=== PATIENT | female | born 1945 | race Caucasian/White ===

== ENCOUNTER 2016-04-23 08:32 | Inpatient (IN) | payer OTHER ==
[~2016-04-23] VITALS: Ht 162.5 cm; Wt 80.6 kg
[~2016-04-23 08:32] MED LIST: ACTONEL150 MG PO; ARICEPT10 MG PO; ASPI-COR81 M1 PO; ASPIR LOW81 MG PO; B COMPLEX #11 TA1 PO; BACTRIM DS 8001 TA1 PO; CEPHULAC10 GM/15 M PO; CIPROFLOXACIN500 MG PO; COZAAR25 MG PO; CRESTOR10 MG PO; DYAZIDE 25 MG-31 CAP PO; ENALAPRIL MALEA20 MG PO; HYDROCHLOROTHIA25 MG PO; KLOR-CON 1010 MEQ PO; LABETALOL200 MG PO; METFORMIN HCL500 MG PO; METOPROLOL100 MG PO; NORVASC5 MG PO; OMEPRAZOLE20 MG PO; ONE DAILY1 TA1 PO; OXYBUTYNIN5 MG PO; QUALITY CHOICE600 M1 PO; SERTRALINE HCL100 MG PO; STOOL SOFTENER100 M3 PO; SYNTHROID,LEV100 MCG PO; SYNTHROID,LEV200 MCG PO; Synthroid,Lev100 MCG PO; Synthroid,Lev200 MCG PO; TRIAMTERENE/HCT1 CAP PO; ULTRAM50 MG PO; VASOTEC10 MG PO; VERAPAMIL HCL180 M1 PO; VERAPAMIL120 MG PO; VITAMIN D PO; VITAMIN D-32000 UNIT PO; VITAMIN D400 I1 PO; VOLTAREN50 M1 PO; VOLTAREN50 MG PO; ZOLOFT100 MG; [UNRECOGNIZED DRUG - OTHER] PO
[2016-04-23 08:38] VITALS: BP 127/90
[2016-04-23 09:48] LABS: PROTHROMBIN TIME 10.8 SECONDS (9.0-12.4)
[2016-04-23 09:56] LABS: ALBUMIN 3.8 gm/dl (3.1-4.5); ALKALINE PHOSPHATASE 131 U/L (45-117); BILIRUBIN, TOTAL 0.9 mg/dl (0.2-1.0); BUN 26 mg/dl (7-24); C-REACTIVE PROTEIN 3.52 MG/DL (0-0.3); CARBON DIOXIDE 26 mmol/L (21-32); CHLORIDE 103 mmol/L (98-107); CKMB 0.7 ng/ml (0.5-3.6); CPK 69 U/L (26-192); EST GLOM FILT AFRICAN AMERICAN 41 ml/min; GLUCOSE 98 mg/dL (65-99); MAGNESIUM 2.2 mg/dL (1.5-2.1); SGOT/AST 84 IU/L (3-35); SGPT/ALT 62 U/L (12-78); SODIUM 140 mmol/L (136-145); TOTAL PROTEIN 8.1 gm/dL (6.4-8.2)
[2016-04-23 09:57] LABS: TROPONIN I < 0.015 ng/ml (<0.045)
[2016-04-23 10:20] LABS: BASO % 0.5 % (0.0-1.0); EOS # 0.5 10*3/uL (0.0-0.4); EOS % 6.6 % (1.0-4.0); HEMATOCRIT 40.3 % (37.0-47.0); HEMOGLOBIN 13.1 g/dl (12.0-16.0); LYMPH # 1.3 10*3/uL (1.3-4.4); LYMPH % 17.7 % (27.0-41.0); MEAN CELL VOLUME 90.6 fl (81.0-99.0); MEAN CORPUSCULAR HGB 29.4 pg (27.0-31.0); MEAN CORPUSCULAR HGB CONC 32.5 g/dl (33.0-37.0); MEAN PLATELET VOLUME 10.4 fl (9.6-12.3); MONO # 0.4 10*3/uL (0.1-1.0); MONO % 5.9 % (3.0-9.0); PLATELET COUNT AUTOMATED 119 10*3/uL (130-400); RED BLOOD COUNT 4.45 10*6/uL (4.10-5.10); RED CELL DISTRI WIDTH 14.8 % (0-14.5); WHITE BLOOD COUNT 7.3 10*3/uL (4.8-10.8)
[2016-04-23 10:50] VITALS: BP 104/57
[2016-04-23] MEDS ORDERED: CRESTOR10 M1 PO (11:07)
[2016-04-23] MEDS ORDERED: KLOR-CON 1010 ME1 PO (11:07)
[2016-04-23 12:00] VITALS: BP 115/60
[2016-04-23 13:00] LABS: BILIRUBIN NEGATIVE (NEGATIVE); BLOOD NEGATIVE (NEGATIVE); CLARITY CLEAR (CLEAR); COLOR YELLOW (YELLOW); GLUCOSE NEGATIVE (NEGATIVE); KETONE NEGATIVE (NEGATIVE); LEUKO ESTERASE 2+ (NEGATIVE); NITRITE NEGATIVE (NEGATIVE); PH 6.5 (5.0-9.0); PROTEIN NEGATIVE (NEGATIVE); UROBILINOGEN 0.2 E.U./dl (0.2-1.0)
[2016-04-23 13:09] LABS: BACTERIA TRACE; URINE REFLEX COMMENT YES (NO)
[2016-04-23 16:00] VITALS: BP 109/55
[2016-04-23 18:38] LABS: CPK 70 U/L (26-192)
[2016-04-23 18:39] LABS: TROPONIN I < 0.015 ng/ml (<0.045)
[2016-04-23 20:00] VITALS: BP 101/53
[2016-04-24] VITALS: BP 109/63
[2016-04-24 00:46] LABS: CKMB 0.7 ng/ml (0.5-3.6); CPK 64 U/L (26-192)
[2016-04-24 00:51] LABS: TROPONIN I < 0.015 ng/ml (<0.045)
[2016-04-24 06:46] LABS: BASO % 0.8 % (0.0-1.0); EOS # 0.5 10*3/uL (0.0-0.4); EOS % 9.1 % (1.0-4.0); HEMATOCRIT 35.3 % (37.0-47.0); HEMOGLOBIN 11.4 g/dl (12.0-16.0); LYMPH # 1.4 10*3/uL (1.3-4.4); LYMPH % 25.9 % (27.0-41.0); MEAN CELL VOLUME 91.7 fl (81.0-99.0); MEAN CORPUSCULAR HGB 29.6 pg (27.0-31.0); MEAN CORPUSCULAR HGB CONC 32.3 g/dl (33.0-37.0); MEAN PLATELET VOLUME 10.2 fl (9.6-12.3); MONO # 0.3 10*3/uL (0.1-1.0); MONO % 5.5 % (3.0-9.0); NEUT # 3.1 10*3/uL (2.3-7.9); NEUT % 58.5 % (47.0-73.0); PLATELET COUNT AUTOMATED 91 10*3/uL (130-400); RED BLOOD COUNT 3.85 10*6/uL (4.10-5.10); RED CELL DISTRI WIDTH 14.9 % (0-14.5); WHITE BLOOD COUNT 5.3 10*3/uL (4.8-10.8)
[2016-04-24 06:57] LABS: CKMB 1.1 ng/ml (0.5-3.6); CPK 66 U/L (26-192)
[2016-04-24 07:00] LABS: TROPONIN I < 0.015 ng/ml (<0.045)
[2016-04-24 07:12] LABS: PROTHROMBIN TIME 10.8 SECONDS (9.0-12.4)
[2016-04-24 07:28] LABS: POTASSIUM 3.5 mmol/L (3.5-5.1)
[2016-04-24 07:42] LABS: HEMOGLOBIN A1c 5.3 % (4.8-5.6)
[2016-04-24 07:53] LABS: ALBUMIN 3.1 gm/dl (3.1-4.5); BILIRUBIN, TOTAL 0.6 mg/dl (0.2-1.0); FREE T4 0.88 ng/dl (0.76-1.46); MAGNESIUM 2.1 mg/dL (1.5-2.1); PHOSPHOROUS 3.1 mg/dL (2.5-4.9); THYROID STIM HORMONE (HS) 33.3 uIU/ml (0.358-4.75); TOTAL PROTEIN 6.8 gm/dL (6.4-8.2)
[2016-04-24 08:00] VITALS: BP 121/77
[2016-04-24 09:21] LABS: VITAMIN D, 25-HYDROXY 34.5 ng/mL (30-100)
[2016-04-24 09:22] LABS: FOLIC ACID 15.94 ng/mL (>5.38)
[2016-04-24 12:00] VITALS: BP 124/76
[2016-04-24 16:00] VITALS: BP 125/72
[2016-04-24 20:00] VITALS: BP 115/53
[2016-04-25] VITALS: BP 113/62
[2016-04-25 06:34] LABS: BASO % 0.4 % (0.0-1.0); EOS # 0.4 10*3/uL (0.0-0.4); HEMATOCRIT 32.8 % (37.0-47.0); HEMOGLOBIN 10.7 g/dl (12.0-16.0); LYMPH # 1.4 10*3/uL (1.3-4.4); LYMPH % 28.1 % (27.0-41.0); MEAN CELL VOLUME 90.9 fl (81.0-99.0); MEAN CORPUSCULAR HGB 29.6 pg (27.0-31.0); MEAN CORPUSCULAR HGB CONC 32.6 g/dl (33.0-37.0); MEAN PLATELET VOLUME 10.3 fl (9.6-12.3); MONO # 0.3 10*3/uL (0.1-1.0); MONO % 5.6 % (3.0-9.0); NEUT # 2.9 10*3/uL (2.3-7.9); NEUT % 57.9 % (47.0-73.0); PLATELET COUNT AUTOMATED 87 10*3/uL (130-400); RED BLOOD COUNT 3.61 10*6/uL (4.10-5.10); RED CELL DISTRI WIDTH 14.6 % (0-14.5)
[2016-04-25 07:04] LABS: POTASSIUM 3.6 mmol/L (3.5-5.1)
[2016-04-25 08:00] VITALS: BP 124/66
[2016-04-25 12:00] VITALS: BP 131/67
[2016-04-25 16:00] VITALS: BP 125/60
[2016-04-25 20:00] VITALS: BP 130/67
[2016-04-26] VITALS: BP 95/50
[2016-04-26 08:00] VITALS: BP 102/76
[2016-04-26 12:00] VITALS: BP 101/62
[2016-04-26 16:00] VITALS: BP 129/67
[2016-04-26 20:00] VITALS: BP 98/50
[2016-04-27] VITALS: BP 97/57
[2016-04-27 06:15] LABS: BASO % 0.6 % (0.0-1.0); EOS # 0.6 10*3/uL (0.0-0.4); EOS % 10.9 % (1.0-4.0); HEMATOCRIT 33.3 % (37.0-47.0); HEMOGLOBIN 10.8 g/dl (12.0-16.0); LYMPH # 1.4 10*3/uL (1.3-4.4); LYMPH % 26.6 % (27.0-41.0); MEAN CELL VOLUME 90.7 fl (81.0-99.0); MEAN CORPUSCULAR HGB 29.4 pg (27.0-31.0); MEAN CORPUSCULAR HGB CONC 32.4 g/dl (33.0-37.0); MEAN PLATELET VOLUME 9.6 fl (9.6-12.3); MONO # 0.3 10*3/uL (0.1-1.0); NEUT # 3.1 10*3/uL (2.3-7.9); NEUT % 56.5 % (47.0-73.0); PLATELET COUNT AUTOMATED 92 10*3/uL (130-400); RED BLOOD COUNT 3.67 10*6/uL (4.10-5.10); RED CELL DISTRI WIDTH 14.7 % (0-14.5); WHITE BLOOD COUNT 5.4 10*3/uL (4.8-10.8)
[2016-04-27 06:20] LABS: BUN 17 mg/dl (7-24); CARBON DIOXIDE 26 mmol/L (21-32); CHLORIDE 109 mmol/L (98-107); EST GLOM FILT AFRICAN AMERICAN > 60 ml/min; GLUCOSE 85 mg/dL (65-99); POTASSIUM 3.4 mmol/L (3.5-5.1); SODIUM 146 mmol/L (136-145)
[2016-04-27 08:00] VITALS: BP 128/60
[2016-04-27 12:00] VITALS: BP 129/75
[2016-04-27 16:00] VITALS: BP 126/78
[2016-04-27 20:00] VITALS: BP 133/67
[2016-04-28] VITALS: BP 111/82
[2016-04-28 08:00] VITALS: BP 110/60
[2016-04-28] MEDS ORDERED: SYNTHROID,LEVO75 MCG PO (09:42)
== END 2016-04-28 12:10 | disposition other institution (70) | DRG 683 ==
LOC: ED 08:32 → 5E 09:28 → EDHOLD 09:28 → 5E 09:39
PROVIDERS: Emergency Medicine; Hospitalist; Internal Medicine
DX: N17.9 Acute kidney failure, unspecified (principal); E44.0 Moderate protein-calorie malnutrition; I10 Essential (primary) hypertension; S20.211A Contusion of right front wall of thorax, initial encounter; E78.5 Hyperlipidemia, unspecified; E03.9 Hypothyroidism, unspecified; K59.00 Constipation, unspecified; W18.39XA Other fall on same level, initial encounter; Y93.89 Activity, other specified; Y92.092 Bedroom in other non-institutional residence as the place of occurrence of the external cause; Y99.8 Other external cause status; Z86.73 Personal history of transient ischemic attack (TIA), and cerebral infarction without residual deficits; Z90.49 Acquired absence of other specified parts of digestive tract; Z90.710 Acquired absence of both cervix and uterus; Z98.49 Cataract extraction status, unspecified eye; Z87.891 Personal history of nicotine dependence; Z88.6 Allergy status to analgesic agent; Z82.49 Family history of ischemic heart disease and other diseases of the circulatory system; Z81.1 Family history of alcohol abuse and dependence; Z79.82 Long term (current) use of aspirin; Z79.899 Other long term (current) drug therapy; Z81.8 Family history of other mental and behavioral disorders; Z68.30 Body mass index [BMI] 30.0-30.9, adult

== ENCOUNTER → 2016-06-22 | Outpatient (CLI) | payer OTHER ==
[~2016-06-22] MED LIST changes: +CRESTOR10 M1 PO; +KLOR-CON 1010 ME1 PO; +SYNTHROID,LEVO75 MCG PO
== END | disposition home or self-care (01) ==
LOC: RAD 10:18
DX: M19.011 Primary osteoarthritis, right shoulder (principal)

== ENCOUNTER 2016-08-26 11:35 | Inpatient (IN) | payer OTHER ==
[~2016-08-26] VITALS: Ht 165.1 cm; Wt 81.4 kg
[~2016-08-26 11:35] MED LIST changes: +NORVASC10 MG PO; -NORVASC5 MG PO
[2016-08-26 11:47] VITALS: BP 129/61
[2016-08-26] MEDS ORDERED: FIBER THERAPY500 M1 PO (11:50)
[2016-08-26] MEDS ORDERED: LEVOTHYROXINE0.1 MG PO (11:51)
[2016-08-26 12:31] LABS: BASO % 0.7 % (0.0-1.0); EOS # 0.5 10*3/uL (0.0-0.4); EOS % 8.9 % (1.0-4.0); HEMATOCRIT 37.7 % (37.0-47.0); HEMOGLOBIN 12.2 g/dl (12.0-16.0); LYMPH # 1.5 10*3/uL (1.3-4.4); LYMPH % 24.5 % (27.0-41.0); MEAN CELL VOLUME 90.6 fl (81.0-99.0); MEAN CORPUSCULAR HGB 29.3 pg (27.0-31.0); MEAN CORPUSCULAR HGB CONC 32.4 g/dl (33.0-37.0); MEAN PLATELET VOLUME 9.7 fl (9.6-12.3); MONO # 0.3 10*3/uL (0.1-1.0); MONO % 4.8 % (3.0-9.0); NEUT # 3.7 10*3/uL (2.3-7.9); NEUT % 60.8 % (47.0-73.0); PLATELET COUNT AUTOMATED 110 10*3/uL (130-400); RED BLOOD COUNT 4.16 10*6/uL (4.10-5.10); RED CELL DISTRI WIDTH 15.2 % (0-14.5); WHITE BLOOD COUNT 6.1 10*3/uL (4.8-10.8)
[2016-08-26 12:45] LABS: ALBUMIN 3.6 gm/dl (3.1-4.5); BILIRUBIN, TOTAL 0.8 mg/dl (0.2-1.0); POTASSIUM 3.7 mmol/L (3.5-5.1); TOTAL PROTEIN 7.4 gm/dL (6.4-8.2)
[2016-08-26 13:05] LABS: BILIRUBIN NEGATIVE (NEGATIVE); BLOOD NEGATIVE (NEGATIVE); CLARITY SL CLOUDY (CLEAR); COLOR YELLOW (YELLOW); GLUCOSE NEGATIVE (NEGATIVE); KETONE NEGATIVE (NEGATIVE); LEUKO ESTERASE 1+ (NEGATIVE); NITRITE NEGATIVE (NEGATIVE); PH 6.5 (5.0-9.0); PROTEIN NEGATIVE (NEGATIVE)
[2016-08-26 13:13] LABS: BACTERIA 1+; EPITHELIAL CELLS 21-30; URINE REFLEX COMMENT YES (NO); WBC 16-20 wbc/hpf (0-5)
[2016-08-26 15:17] VITALS: BP 111/59
[2016-08-26 16:00] VITALS: BP 118/62
[2016-08-26 20:00] VITALS: BP 119/92
[2016-08-27] VITALS: BP 120/54
[2016-08-27 06:14] LABS: HEMOGLOBIN A1c 5.7 % (4.8-5.6)
[2016-08-27 06:22] LABS: EOS # 0.5 10*3/uL (0.0-0.4); EOS % 11.1 % (1.0-4.0); HEMATOCRIT 35.6 % (37.0-47.0); HEMOGLOBIN 11.5 g/dl (12.0-16.0); LYMPH # 1.2 10*3/uL (1.3-4.4); LYMPH % 28.4 % (27.0-41.0); MEAN CORPUSCULAR HGB CONC 32.3 g/dl (33.0-37.0); MEAN PLATELET VOLUME 10.4 fl (9.6-12.3); MONO # 0.3 10*3/uL (0.1-1.0); MONO % 6.7 % (3.0-9.0); NEUT # 2.1 10*3/uL (2.3-7.9); NEUT % 52.8 % (47.0-73.0); PLATELET COUNT AUTOMATED 89 10*3/uL (130-400); RED BLOOD COUNT 3.83 10*6/uL (4.10-5.10); WHITE BLOOD COUNT 4.1 10*3/uL (4.8-10.8)
[2016-08-27 06:28] LABS: ALBUMIN 3.1 gm/dl (3.1-4.5); BILIRUBIN, TOTAL 0.5 mg/dl (0.2-1.0); MAGNESIUM 1.9 mg/dL (1.5-2.1); PHOSPHOROUS 2.8 mg/dL (2.5-4.9); POTASSIUM 3.5 mmol/L (3.5-5.1)
[2016-08-27 06:36] LABS: FREE T4 0.87 ng/dl (0.76-1.46); THYROID STIM HORMONE (HS) 29.1 uIU/ml (0.358-4.75)
[2016-08-27 07:00] LABS: PROTHROMBIN TIME 10.6 SECONDS (9.0-12.4)
[2016-08-27 07:02] LABS: VITAMIN D, 25-HYDROXY 41.1 ng/mL (30-100)
[2016-08-27 07:03] LABS: FOLIC ACID > 24.00 ng/mL (>5.38)
[2016-08-27 08:00] VITALS: BP 122/78
[2016-08-27 12:00] VITALS: BP 126/75
[2016-08-27 16:44] VITALS: BP 109/52
[2016-08-27 20:16] VITALS: BP 112/55
[2016-08-28] VITALS: BP 112/57
[2016-08-28 06:40] LABS: BASO % 0.6 % (0.0-1.0); EOS # 0.4 10*3/uL (0.0-0.4); EOS % 11.1 % (1.0-4.0); HEMATOCRIT 32.6 % (37.0-47.0); HEMOGLOBIN 10.5 g/dl (12.0-16.0); LYMPH # 1.2 10*3/uL (1.3-4.4); LYMPH % 34.3 % (27.0-41.0); MEAN CELL VOLUME 91.8 fl (81.0-99.0); MEAN CORPUSCULAR HGB 29.6 pg (27.0-31.0); MEAN CORPUSCULAR HGB CONC 32.2 g/dl (33.0-37.0); MEAN PLATELET VOLUME 10.7 fl (9.6-12.3); MONO # 0.2 10*3/uL (0.1-1.0); MONO % 6.4 % (3.0-9.0); NEUT # 1.7 10*3/uL (2.3-7.9); NEUT % 47.6 % (47.0-73.0); PLATELET COUNT AUTOMATED 78 10*3/uL (130-400); RED BLOOD COUNT 3.55 10*6/uL (4.10-5.10); RED CELL DISTRI WIDTH 14.9 % (0-14.5); WHITE BLOOD COUNT 3.6 10*3/uL (4.8-10.8)
[2016-08-28 07:10] LABS: MAGNESIUM 1.9 mg/dL (1.5-2.1); PHOSPHOROUS 2.8 mg/dL (2.5-4.9); POTASSIUM 3.7 mmol/L (3.5-5.1)
[2016-08-28 08:00] VITALS: BP 112/62
[2016-08-28 16:00] VITALS: BP 129/58
[2016-08-28 20:00] VITALS: BP 122/57
[2016-08-29] VITALS: BP 133/67
[2016-08-29 06:59] LABS: BASO % 0.6 % (0.0-1.0); EOS # 0.4 10*3/uL (0.0-0.4); EOS % 12.3 % (1.0-4.0); HEMATOCRIT 33.5 % (37.0-47.0); HEMOGLOBIN 10.8 g/dl (12.0-16.0); LYMPH # 1.1 10*3/uL (1.3-4.4); LYMPH % 29.9 % (27.0-41.0); MEAN CORPUSCULAR HGB 29.7 pg (27.0-31.0); MEAN CORPUSCULAR HGB CONC 32.2 g/dl (33.0-37.0); MEAN PLATELET VOLUME 10.1 fl (9.6-12.3); MONO # 0.2 10*3/uL (0.1-1.0); MONO % 5.9 % (3.0-9.0); NEUT # 1.8 10*3/uL (2.3-7.9); NEUT % 51.3 % (47.0-73.0); PLATELET COUNT AUTOMATED 75 10*3/uL (130-400); RED BLOOD COUNT 3.64 10*6/uL (4.10-5.10); RED CELL DISTRI WIDTH 14.9 % (0-14.5); WHITE BLOOD COUNT 3.6 10*3/uL (4.8-10.8)
[2016-08-29 07:20] LABS: POTASSIUM 3.4 mmol/L (3.5-5.1)
[2016-08-29 07:30] LABS: PROTHROMBIN TIME 10.8 SECONDS (9.0-12.4)
[2016-08-29 08:00] VITALS: BP 112/64
[2016-08-29] MEDS ORDERED: B12,B-12,B 12500 MC1 PO (13:42)
[2016-08-29] MEDS ORDERED: Synthroid,Lev150 MCG PO (13:45)
[2016-08-29 14:00] VITALS: BP 136/60
== END 2016-08-29 14:14 | disposition other institution (70) | DRG 689 ==
LOC: ED 11:35 → EDHOLD 13:45 → 5E 13:45
PROVIDERS: Family Medicine; Internal Medicine; Nurse Practitioner Family
PROC: BD1BYZZ Fluoroscopy of Mouth/Oropharynx using Other Contrast (ICD-10-PCS; principal; 2016-08-27)
DX: N39.0 Urinary tract infection, site not specified (principal); N17.0 Acute kidney failure with tubular necrosis; R13.10 Dysphagia, unspecified; I10 Essential (primary) hypertension; R26.81 Unsteadiness on feet; D64.9 Anemia, unspecified; E78.5 Hyperlipidemia, unspecified; K21.9 Gastro-esophageal reflux disease without esophagitis; E55.9 Vitamin D deficiency, unspecified; E03.9 Hypothyroidism, unspecified; R29.6 Repeated falls; W18.30XA Fall on same level, unspecified, initial encounter; Y93.89 Activity, other specified; Y99.8 Other external cause status; Z88.5 Allergy status to narcotic agent; Z79.82 Long term (current) use of aspirin; Z79.899 Other long term (current) drug therapy; Z90.710 Acquired absence of both cervix and uterus; Z98.42 Cataract extraction status, left eye; Z98.41 Cataract extraction status, right eye; Z87.891 Personal history of nicotine dependence; Z81.1 Family history of alcohol abuse and dependence; Z82.49 Family history of ischemic heart disease and other diseases of the circulatory system; Z81.8 Family history of other mental and behavioral disorders; Z86.73 Personal history of transient ischemic attack (TIA), and cerebral infarction without residual deficits; Z90.49 Acquired absence of other specified parts of digestive tract; Y92.091 Bathroom in other non-institutional residence as the place of occurrence of the external cause

== ENCOUNTER 2017-03-21 21:43 | Inpatient (IN) | payer OTHER ==
[~2017-03-21] VITALS: Ht 162.6 cm; Wt 76.7 kg
--- NOTE | ~2017-03-21 | PR ---
[place], [place] PROGRESS NOTE NAME: CYNTHIA ORTEZ UNIT #: [id number] ROOM: 405 DOCTOR: JAYLON LAM MD BIRTHDATE: [birth year] DOS: 03/23/2017 The patient was seen because of thrombocytopenia and splenomegaly. Full consult to follow. Workup has been ordered. Thrombocytopenia could be secondary to sepsis/bone marrow suppressions/splenomegaly. Depending upon the peripheral smear other workup, further intervention. JAYLON LAM MD CM:PNTRANS [phone] JAYLON LAM MD 03/24/17 0108 interface
--- NOTE | ~2017-03-21 | PR ---
[place], [place] PROGRESS NOTE NAME: CYNTHIA ORTEZ [facility] #: [id number] UNIT #: [id number] ROOM: 405 DOCTOR: JAYLON LAM MD BIRTHDATE: [birth year] DOS: 03/24/2017 SUBJECTIVE: The patient is doing better. REVIEW OF SYSTEMS: HEENT: No trouble swallowing. No double vision. No loss of vision. No pain. ENT AND RESPIRATORY: No wheeze. No change in voice. No cough. No shortness of breath. No coughing up blood. No epistaxis. CARDIOLOGIC: No chest pain. No dizziness. No irregular heartbeat. No leg edema. No palpitations. No shortness of breath. HEMATOLOGIC AND LYMPH: No past transfusion. No fatigue. No loss of appetite. No easy bruising. GASTROENEROLOGIC: No change in bowel habits. No vomiting blood. No abdominal cramping. No nausea. No vomiting. No diarrhea. No constipation. No blood in stool. FEMALE REPRODUCTIVE: No dyspareunia. No pelvic pain. MUSCULOSKELETAL: No back pain. No muscle pain or weakness. No tingling/numbness. UROLOGIC: No pain with urination. No difficulty urinating. No frequent urination. NEUROLOGIC: No burning pain in feet. No trouble with coordination. No loss of consciousness. No headache. No tingling/numbness. No memory loss. PHYSICAL EXAMINATION: GENERAL: Pleasant woman in no apparent distress. VITAL SIGNS: Stable. She is afebrile. HEENT: Normocephalic, atraumatic NECK AND THYROID: Supple. No JVD, thyromegaly, or lymphadenopathy. HEART: Normal S1, S2. Regular rate and rhythm. LUNGS: Clear to auscultation and percussion. ABDOMEN: Soft. Nontender, nondistended. Bowel sounds present. EXTREMITIES: Normal ROM. No clubbing. No edema. LABORATORY DATA: White count of 3.5, hemoglobin 12.6, hematocrit 37.6, platelet count of 50,000. ASSESSMENT: 1. Thrombocytopenia, probably secondary to splenomegaly/bone marrow suppression. 2. Leukopenia secondary to possible splenomegaly. 3. Sepsis. 4. Acute pneumonitis. PLAN: Workup has been ordered. We will continue broad spectrum antibiotics. We will also review peripheral smears. Once workup is back ____ further intervention discussed. [place], [place] PROGRESS NOTE NAME: CYNTHIA ORTEZ UNIT #: [id number] ROOM: 405 DOCTOR: JAYLON LAM MD BIRTHDATE: [birth year] JAYLON LAM MD CM:ELIJAH [id number] JAYLON LAM MD 03/24/17 1657 interface
[2017-03-21 21:43] VITALS: BP 142/66
[~2017-03-21 21:43] MED LIST changes: +B12,B-12,B 12500 MC1 PO; +FIBER THERAPY500 M1 PO; +LEVOTHYROXINE0.1 MG PO; +Synthroid,Lev150 MCG PO
[2017-03-21] MEDS ORDERED: Synthroid,Lev150 MCG PO (22:09)
[2017-03-21] MEDS ORDERED: ZOLOFT100 MG PO (22:09)
[2017-03-21] MEDS ORDERED: PRINIVIL10 MG PO (22:10)
[2017-03-21] MEDS ORDERED: FIBER LAXATIVE625 MG PO (22:10)
[2017-03-21] MEDS ORDERED: MIRALAX17 GM PO (22:10)
[2017-03-21] MEDS ORDERED: TYLENOL325 M2 PO (22:10)
[2017-03-21 22:11] LABS: BASO % 0.4 % (0.0-1.0); EOS # 0.1 10*3/uL (0.0-0.4); EOS % 2.5 % (1.0-4.0); HEMOGLOBIN 12.9 g/dl (12.0-16.0); LYMPH # 0.5 10*3/uL (1.3-4.4); LYMPH % 9.6 % (27.0-41.0); MEAN CELL VOLUME 86.6 fl (81.0-99.0); MEAN CORPUSCULAR HGB 29.4 pg (27.0-31.0); MEAN CORPUSCULAR HGB CONC 33.9 g/dl (33.0-37.0); MEAN PLATELET VOLUME 10.4 fl (9.6-12.3); MONO # 0.3 10*3/uL (0.1-1.0); MONO % 5.3 % (3.0-9.0); NEUT # 3.9 10*3/uL (2.3-7.9); NEUT % 81.8 % (47.0-73.0); PLATELET COUNT AUTOMATED 65 10*3/uL (130-400); RED BLOOD COUNT 4.39 10*6/uL (4.10-5.10); RED CELL DISTRI WIDTH 14.3 % (0-14.5); WHITE BLOOD COUNT 4.7 10*3/uL (4.8-10.8)
[2017-03-21] MEDS ORDERED: ASPIRIN CHEWABL81 MG PO (22:11)
[2017-03-21] MEDS ORDERED: ZANTAC 150150 MG PO (22:11)
[2017-03-21] MEDS ORDERED: COLACE100 MG PO (22:11)
[2017-03-21] MEDS ORDERED: NORVASC10 MG PO (22:11)
[2017-03-21] MEDS ORDERED: VITAMIN D-32000 UNI1 PO (22:12)
[2017-03-21] MEDS ORDERED: CRESTOR10 M1 PO (22:12)
[2017-03-21 22:22] LABS: ACT PARTIAL THROMBO TIME 27.6 SECONDS (20.8-31.5); INTERNATIONAL NORM RATIO 1.1 (2.0-3.5)
[2017-03-21 22:29] VITALS: BP 146/75
[2017-03-21 22:42] LABS: ALBUMIN 3.4 gm/dl (3.1-4.5); ALKALINE PHOSPHATASE 116 U/L (45-117); BUN 16 mg/dl (7-24); CHLORIDE 105 mmol/L (98-107); CREATININE 1.05 mg/dL (0.55-1.02); POTASSIUM 3.4 mmol/L (3.5-5.1); SGOT/AST 81 IU/L (3-35); SGPT/ALT 40 U/L (12-78); SODIUM 139 mmol/L (136-145); TOTAL PROTEIN 7.3 gm/dL (6.4-8.2); TROPONIN I < 0.015 ng/ml (<0.045)
[2017-03-21 22:48] VITALS: BP 142/72
[2017-03-21 22:51] LABS: BILIRUBIN NEGATIVE (NEGATIVE); BLOOD TRACE-INTACT (NEGATIVE); CLARITY SL CLOUDY (CLEAR); COLOR YELLOW (YELLOW); GLUCOSE NEGATIVE (NEGATIVE); KETONE NEGATIVE (NEGATIVE); LEUKO ESTERASE 1+ (NEGATIVE); NITRITE NEGATIVE (NEGATIVE); PH 6.5 (5.0-9.0); SPECIFIC GRAVITY 1.015 (1.005-1.030)
[2017-03-21 23:03] LABS: RBC 21-30 rbc/hpf (0-2); WBC 21-30 wbc/hpf (0-5)
[2017-03-21 23:04] LABS: BACTERIA 2+; EPITHELIAL CELLS 41-50
[2017-03-22] VITALS: BP 123/61
[2017-03-22 06:20] LABS: BASO % 0.4 % (0.0-1.0); EOS % 0.9 % (1.0-4.0); HEMATOCRIT 38.3 % (37.0-47.0); LYMPH # 0.5 10*3/uL (1.3-4.4); LYMPH % 10.4 % (27.0-41.0); MEAN CELL VOLUME 87.6 fl (81.0-99.0); MEAN CORPUSCULAR HGB 29.7 pg (27.0-31.0); MEAN CORPUSCULAR HGB CONC 33.9 g/dl (33.0-37.0); MEAN PLATELET VOLUME 11.1 fl (9.6-12.3); MONO # 0.4 10*3/uL (0.1-1.0); MONO % 8.4 % (3.0-9.0); NEUT # 3.6 10*3/uL (2.3-7.9); NEUT % 79.7 % (47.0-73.0); PLATELET COUNT AUTOMATED 58 10*3/uL (130-400); RED BLOOD COUNT 4.37 10*6/uL (4.10-5.10); RED CELL DISTRI WIDTH 14.4 % (0-14.5); WHITE BLOOD COUNT 4.5 10*3/uL (4.8-10.8)
[2017-03-22 06:51] LABS: ALBUMIN 3.2 gm/dl (3.1-4.5); ALKALINE PHOSPHATASE 112 U/L (45-117); BUN 13 mg/dl (7-24); CHLORIDE 103 mmol/L (98-107); CHOLESTEROL 99 mg/dL (<200); CREATININE 0.94 mg/dL (0.55-1.02); FREE T4 1.77 ng/dl (0.76-1.46); HDL CHOLESTEROL 44 mg/dl (40-60); LDL CHOLESTEROL 38 mg/dL (9-159); PHOSPHOROUS 2.7 mg/dL (2.5-4.9); POTASSIUM 3.2 mmol/L (3.5-5.1); SGOT/AST 88 IU/L (3-35); SGPT/ALT 38 U/L (12-78); SODIUM 138 mmol/L (136-145); TOTAL PROTEIN 7.1 gm/dL (6.4-8.2); TRIGLYCERIDES 84 mg/dl (<150); VLDL CHOLESTEROL 17 mg/dL (6-40)
[2017-03-22 06:54] LABS: ACT PARTIAL THROMBO TIME 28.2 SECONDS (20.8-31.5); INTERNATIONAL NORM RATIO 1.1 (2.0-3.5)
[2017-03-22 06:56] LABS: THYROID STIM HORMONE (HS) < 0.005 uIU/ml (0.358-4.75)
[2017-03-22 08:00] VITALS: BP 140/60; BP 142/72
[2017-03-22 12:00] VITALS: BP 136/59
[2017-03-22 16:00] VITALS: BP 132/53
[2017-03-22 20:00] VITALS: BP 136/66
[2017-03-23] VITALS: BP 157/75
[2017-03-23 07:13] LABS: HEMATOCRIT 35.8 % (37.0-47.0); HEMOGLOBIN 11.8 g/dl (12.0-16.0); LYMPH # 0.5 10*3/uL (1.3-4.4); LYMPH % 16.5 % (27.0-41.0); MEAN CELL VOLUME 87.7 fl (81.0-99.0); MEAN CORPUSCULAR HGB 28.9 pg (27.0-31.0); MEAN PLATELET VOLUME 10.7 fl (9.6-12.3); MONO # 0.2 10*3/uL (0.1-1.0); MONO % 6.4 % (3.0-9.0); NEUT # 2.5 10*3/uL (2.3-7.9); NEUT % 76.8 % (47.0-73.0); PLATELET COUNT AUTOMATED 50 10*3/uL (130-400); RED BLOOD COUNT 4.08 10*6/uL (4.10-5.10); RED CELL DISTRI WIDTH 14.5 % (0-14.5); WHITE BLOOD COUNT 3.3 10*3/uL (4.8-10.8)
[2017-03-23 07:31] LABS: CHLORIDE 110 mmol/L (98-107); POTASSIUM 3.6 mmol/L (3.5-5.1); SODIUM 144 mmol/L (136-145)
[2017-03-23 07:41] LABS: BUN 12 mg/dl (7-24); CREATININE 0.89 mg/dL (0.55-1.02)
[2017-03-23 08:00] VITALS: BP 146/62
[2017-03-23 12:00] VITALS: BP 155/61
[2017-03-23 16:00] VITALS: BP 138/61
[2017-03-23 20:00] VITALS: BP 144/67
[2017-03-24] VITALS: BP 141/71
[2017-03-24 06:51] LABS: HEMATOCRIT 37.6 % (37.0-47.0); HEMOGLOBIN 12.6 g/dl (12.0-16.0); LYMPH # 0.7 10*3/uL (1.3-4.4); LYMPH % 20.1 % (27.0-41.0); MEAN CELL VOLUME 88.3 fl (81.0-99.0); MEAN CORPUSCULAR HGB 29.6 pg (27.0-31.0); MEAN CORPUSCULAR HGB CONC 33.5 g/dl (33.0-37.0); MEAN PLATELET VOLUME 10.7 fl (9.6-12.3); MONO # 0.2 10*3/uL (0.1-1.0); MONO % 4.3 % (3.0-9.0); NEUT # 2.6 10*3/uL (2.3-7.9); NEUT % 75.3 % (47.0-73.0); PLATELET COUNT AUTOMATED 58 10*3/uL (130-400); RED BLOOD COUNT 4.26 10*6/uL (4.10-5.10); RED CELL DISTRI WIDTH 14.7 % (0-14.5); WHITE BLOOD COUNT 3.5 10*3/uL (4.8-10.8)
[2017-03-24 07:05] LABS: TOTAL PROTEIN, SERUM 6.8 g/dL (6.0-8.5)
[2017-03-24 07:25] VITALS: BP 150/70
[2017-03-24 07:32] LABS: ALBUMIN 3.1 gm/dl (3.1-4.5); BUN 17 mg/dl (7-24); CHLORIDE 109 mmol/L (98-107); CREATININE 0.81 mg/dL (0.55-1.02); POTASSIUM 3.4 mmol/L (3.5-5.1); SGOT/AST 97 IU/L (3-35); SGPT/ALT 53 U/L (12-78); SODIUM 144 mmol/L (136-145)
[2017-03-24 07:42] LABS: ALKALINE PHOSPHATASE 104 U/L (45-117); TOTAL PROTEIN 7.2 gm/dL (6.4-8.2)
[2017-03-24 11:50] VITALS: BP 160/78
[2017-03-24] MEDS ORDERED: TAMIFLU 75MG CA75 MG PO (14:02)
[2017-03-24] MEDS ORDERED: PREDNISONE10 MG PO (14:02)
[2017-03-24] MEDS ORDERED: Synthroid,Levo25 MCG PO (14:02)
[2017-03-24] MEDS ORDERED: DUONEB 3 MG/3 ML3 M1 NEB (14:02)
[2017-03-24 15:07] LABS: ALBUMIN 3.4 g/dL (2.9-4.4); ALPHA-1-GLOBULIN 0.3 g/dL (0.0-0.4); ALPHA-2-GLOBULIN 0.6 g/dL (0.4-1.0); BETA GLOBULIN 1.1 g/dL (0.7-1.3); GAMMA GLOBULIN 1.4 g/dL (0.4-1.8); GLOBULIN, TOTAL 3.4 g/dL (2.2-3.9); M-SPIKE Not Observed g/dL (Not Observed)
[2017-03-25 13:07] LABS: PLT ASSOCIATED ANTI-la/lla Positive (Negative); PLT ASSOCIATED ANTI-llb/llla Positive (Negative)
[2017-03-25 16:08] LABS: ALBUMIN, URINE RANDOM 27.4 % (.); ALPHA-1-GLOBULIN, URINE 4.8 % (.); ALPHA-2-GLOBULIN, URINE 13.6 % (.); M-SPIKE % Not Observed % (Not Observed); PROTEIN,TOTAL - URINE RANDOM 12.9 mg/dL (Not Estab.)
[2017-03-25 17:10] LABS: HLA CLASS 1 ANTIBODY Negative (Negative); IIb/IIIa ANTIBODY Negative (Negative); Ia/IIa ANTIBODY Negative (Negative); Ib/IX ANTIBODY Negative (Negative)
== END 2017-03-24 17:00 | disposition other institution (70) | DRG 871 ==
LOC: ED 21:43 → EDHOLD 23:15 → 4E 23:15
PROVIDERS: Emergency Medicine; Family Medicine; Hospitalist; Internal Medicine; Pediatrics Pediatric Gastroenterology; Student in an Organized Health Care Education/Training Program
DX: A41.9 Sepsis, unspecified organism (principal); J18.9 Pneumonia, unspecified organism; J96.01 Acute respiratory failure with hypoxia; N17.0 Acute kidney failure with tubular necrosis; D69.3 Immune thrombocytopenic purpura; F03.90 Unspecified dementia, unspecified severity, without behavioral disturbance, psychotic disturbance, mood disturbance, and anxiety; N39.0 Urinary tract infection, site not specified; R16.1 Splenomegaly, not elsewhere classified; E86.0 Dehydration; R65.20 Severe sepsis without septic shock; E87.6 Hypokalemia; E03.9 Hypothyroidism, unspecified; I10 Essential (primary) hypertension; E78.5 Hyperlipidemia, unspecified; K21.9 Gastro-esophageal reflux disease without esophagitis; R29.6 Repeated falls; J45.909 Unspecified asthma, uncomplicated; K80.20 Calculus of gallbladder without cholecystitis without obstruction; Z88.6 Allergy status to analgesic agent; Z79.899 Other long term (current) drug therapy; Z86.73 Personal history of transient ischemic attack (TIA), and cerebral infarction without residual deficits; Z90.49 Acquired absence of other specified parts of digestive tract; Z98.42 Cataract extraction status, left eye; Z98.41 Cataract extraction status, right eye; Z90.710 Acquired absence of both cervix and uterus; Z82.49 Family history of ischemic heart disease and other diseases of the circulatory system; Z81.8 Family history of other mental and behavioral disorders; Z81.1 Family history of alcohol abuse and dependence; Z87.891 Personal history of nicotine dependence; Z80.7 Family history of other malignant neoplasms of lymphoid, hematopoietic and related tissues; Z79.82 Long term (current) use of aspirin

== ENCOUNTER 2017-07-07 15:30 | Inpatient (IN) | payer OTHER ==
[~2017-07-07] VITALS: Ht 162.5 cm; Wt 78.5 kg
--- NOTE | ~2017-07-07 | PROC NOTE ---
[place], [place] PROCEDURE NOTE NAME: CYNTHIA ORTEZ UNIT #: [id number] ROOM: 407 DOCTOR: JORDEN CURTIS BIRTHDATE: [birth year] DOS: 07/09/2017 LOCATION: [facility] ROOM: 407, bed 2 ORDERING PHYSICIAN: Donald Damon. RADIOLOGIST: Dr. Rodriguez. BACKGROUND INFORMATION: The patient, a 72-year-old female was seen for modified barium swallow. This test was ordered to rule out aspiration. The patient is known to this department and has a history of dysphagia. The patient was admitted with UTI and metabolic encephalopathy. Further medical history includes GERD, sepsis, dehydration, dementia, TIAs and hypertension. The patient currently receives a regular diet and thin liquids. The patient underwent a prior modified barium swallow in August of 2016 and at that time was recommended a soft diet with thin liquids and use of a chin tuck maneuver. For today's assessment, the patient was alert and able to follow commands. Dysarthric speech was noted making patient difficult to understand at times. Oral peripheral examination revealed presence of few natural teeth. Labial skills were within functional limits in terms of strength, range of motion, and coordination. Lingual coordination was mildly impaired. Strength and range of motion were within functional limits. The patient was able to volitionally swallow. Her volitional cough was uncoordinated. METHODS AND MATERIALS USED FOR THE EXAM: The patient was positioned in the lateral plane and the exam was viewed under fluoroscopy. The patient was presented with a variety of consistencies to assess swallowing skills including applesauce mixed with barium, barium coated banana and cookie taken in bite size pieces and thin liquid barium taken by straw. The patient reported that she is only able to drink by straw; therefore, was not assessed with thin liquid by cup. ORAL PHASE: The patient achieved adequate labial seal around spoon and cup with no anterior loss. Bolus formation was within functional limits. Oral transit was moderately impaired with solids. Mastication was moderately impaired as well. Tongue to palate contact was reduced with mild nasal regurgitation with solids. Tongue retraction was within normal limits. PHARYNGEAL PHASE: The pharyngeal swallow occurred within a timely manner. Laryngeal elevation and epiglottic function were reduced. Penetration was displayed when thin liquids were taken by straw. The patient was then instructed to use a chin tuck maneuver and when doing so and taking small sips, no penetration or aspiration occurred. No penetration occurred with any other consistency. There was no residue in the pharynx. ESOPHAGEAL PHASE: This phase of the swallow was not formally assessed during this exam. [place], [place] PROCEDURE NOTE NAME: CYNTHIA ORTEZ UNIT #: [id number] ROOM: [facility] DOCTOR: JORDEN CURTIS BIRTHDATE: [birth year] IMPRESSIONS AND RECOMMENDATIONS: Based upon assessment results, this 72-year-old patient presented with a moderate oropharyngeal dysphagia. She exhibited impaired mastication and oral transit. Laryngeal elevation and epiglottic function were impaired with penetration occurring with thin liquid by straw. Chin tuck and small sips of liquid were effective in reducing penetration. Recommend the patient receive a pureed diet and thin liquids. Recommend chin tuck with liquids. Also, recommend use of strategies such as upright positioning for meals and small bites and sips. Followup therapy is recommended for strengthening exercises, use of strategies and education to ensure safety. Results and recommendations were shared with the patient and her nurse and they verbalized understanding. Thank you very much for this referral. Should you have any questions regarding this patient, please contact the speech pathologist at [phone]. JORDEN CURTIS DONALD DAMON DO CM:PROCNOTE:PROCEDURE NOTE [id number] JORDEN CURTIS
[~2017-07-07 15:30] MED LIST changes: +ASPIRIN CHEWABL81 MG PO; +COLACE100 MG PO; +DUONEB 3 MG/3 ML3 M1 NEB; +FIBER LAXATIVE625 MG PO; +MIRALAX17 GM PO; +PREDNISONE10 MG PO; +PRINIVIL10 MG PO; +Synthroid,Levo25 MCG PO; +TAMIFLU 75MG CA75 MG PO; +TYLENOL325 M2 PO; +VITAMIN D-32000 UNI1 PO; +ZANTAC 150150 MG PO; +ZOLOFT100 MG PO
[2017-07-07 15:31] VITALS: BP 157/78
[2017-07-07] MEDS ORDERED: COREG3.125 MG PO (15:44)
[2017-07-07] MEDS ORDERED: MACROBID100 M1 PO (15:45)
[2017-07-07] MEDS ORDERED: MILK OF MA400 MG/52 PO (15:46)
[2017-07-07] MEDS ORDERED: NYSTATIN OINTME30 GM T (15:47)
[2017-07-07 16:06] LABS: BILIRUBIN NEGATIVE (NEGATIVE); BLOOD 2+ (NEGATIVE); CLARITY CLEAR (CLEAR); COLOR YELLOW (YELLOW); GLUCOSE NEGATIVE (NEGATIVE); KETONE NEGATIVE (NEGATIVE); LEUKO ESTERASE 1+ (NEGATIVE); NITRITE NEGATIVE (NEGATIVE); PH 7.5 (5.0-9.0); SPECIFIC GRAVITY 1.015 (1.005-1.030)
[2017-07-07 16:11] LABS: BASO % 0.2 % (0.0-1.0); EOS % 0.8 % (1.0-4.0); HEMATOCRIT 42.3 % (37.0-47.0); HEMOGLOBIN 14.1 g/dl (12.0-16.0); LYMPH # 0.4 10*3/uL (1.3-4.4); LYMPH % 7.3 % (27.0-41.0); MEAN CELL VOLUME 91.8 fl (81.0-99.0); MEAN CORPUSCULAR HGB 30.6 pg (27.0-31.0); MEAN CORPUSCULAR HGB CONC 33.3 g/dl (33.0-37.0); MEAN PLATELET VOLUME 9.6 fl (9.6-12.3); MONO # 0.1 10*3/uL (0.1-1.0); MONO % 2.7 % (3.0-9.0); NEUT # 4.2 10*3/uL (2.3-7.9); NEUT % 88.4 % (47.0-73.0); PLATELET COUNT AUTOMATED 54 10*3/uL (130-400); RED BLOOD COUNT 4.61 10*6/uL (4.10-5.10); RED CELL DISTRI WIDTH 15.4 % (0-14.5); WHITE BLOOD COUNT 4.8 10*3/uL (4.8-10.8)
[2017-07-07 16:15] LABS: BACTERIA 4+
[2017-07-07 16:16] LABS: RBC 21-30 rbc/hpf (0-2)
[2017-07-07 16:20] LABS: ACT PARTIAL THROMBO TIME 26.1 SECONDS (20.8-31.5); INTERNATIONAL NORM RATIO 1.1 (2.0-3.5)
[2017-07-07 16:25] LABS: ALBUMIN 3.4 gm/dl (3.1-4.5); ALKALINE PHOSPHATASE 120 U/L (45-117); BUN 21 mg/dl (7-24); CHLORIDE 105 mmol/L (98-107); CREATININE 1.59 mg/dL (0.55-1.02); LIPASE 147 U/L (73-393); POTASSIUM 3.2 mmol/L (3.5-5.1); SGOT/AST 48 IU/L (3-35); SGPT/ALT 32 U/L (12-78); SODIUM 139 mmol/L (136-145); TOTAL PROTEIN 8.2 gm/dL (6.4-8.2)
[2017-07-07 16:27] LABS: TROPONIN I < 0.015 ng/ml (<0.045)
[2017-07-07 17:42] VITALS: BP 133/67
[2017-07-07] MEDS ORDERED: BIOFREEZE118 ML T (18:21)
[2017-07-07] MEDS ORDERED: ROBITUSSIN DM 101 OZ PO (18:23)
[2017-07-07 18:25] VITALS: BP 126/56
[2017-07-07] MEDS ORDERED: MILK OF MA400 MG/51 PO (18:27)
[2017-07-07] MEDS ORDERED: SYNTHROID,LEVO75 MCG PO (18:32)
[2017-07-07 20:00] VITALS: BP 133/67
[2017-07-08] VITALS: BP 130/66
[2017-07-08 05:52] LABS: ALBUMIN 2.8 gm/dl (3.1-4.5); CREATININE 1.36 mg/dL (0.55-1.02); PHOSPHOROUS 1.3 mg/dL (2.5-4.9); POTASSIUM 2.8 mmol/L (3.5-5.1); TOTAL PROTEIN 6.5 gm/dL (6.4-8.2)
[2017-07-08 05:53] LABS: FREE T4 0.92 ng/dl (0.76-1.46)
[2017-07-08 06:04] LABS: THYROID STIM HORMONE (HS) 14.3 uIU/ml (0.358-4.75)
[2017-07-08 06:12] LABS: MEAN CELL VOLUME 91.9 fl (81.0-99.0); MEAN CORPUSCULAR HGB 30.8 pg (27.0-31.0); MEAN CORPUSCULAR HGB CONC 33.5 g/dl (33.0-37.0); MEAN PLATELET VOLUME 10.6 fl (9.6-12.3); PLATELET COUNT AUTOMATED 52 10*3/uL (130-400); RED BLOOD COUNT 3.83 10*6/uL (4.10-5.10); RED CELL DISTRI WIDTH 15.2 % (0-14.5); WHITE BLOOD COUNT 5.9 10*3/uL (4.8-10.8)
[2017-07-08 06:17] LABS: HEMATOCRIT 35.2 % (37.0-47.0); HEMOGLOBIN 11.8 g/dl (12.0-16.0)
[2017-07-08 06:57] LABS: PLATELET SUFFICIENCY LOW (NORMAL); TOTAL CELLS COUNTED 100 #CELLS
[2017-07-08 08:00] VITALS: BP 108/70
[2017-07-08 12:00] VITALS: BP 108/56
[2017-07-08 16:00] VITALS: BP 118/56
[2017-07-08 20:00] VITALS: BP 122/65
[2017-07-09 00:12] VITALS: BP 139/65
[2017-07-09 06:04] LABS: BASO % 0.2 % (0.0-1.0); EOS # 0.2 10*3/uL (0.0-0.4); EOS % 3.2 % (1.0-4.0); HEMOGLOBIN 10.9 g/dl (12.0-16.0); LYMPH # 0.9 10*3/uL (1.3-4.4); LYMPH % 18.1 % (27.0-41.0); MEAN CELL VOLUME 92.4 fl (81.0-99.0); MEAN CORPUSCULAR HGB 30.5 pg (27.0-31.0); MEAN PLATELET VOLUME 10.8 fl (9.6-12.3); MONO # 0.4 10*3/uL (0.1-1.0); MONO % 7.9 % (3.0-9.0); NEUT # 3.6 10*3/uL (2.3-7.9); PLATELET COUNT AUTOMATED 51 10*3/uL (130-400); RED BLOOD COUNT 3.57 10*6/uL (4.10-5.10); RED CELL DISTRI WIDTH 15.3 % (0-14.5); WHITE BLOOD COUNT 5.1 10*3/uL (4.8-10.8)
[2017-07-09 06:18] LABS: BUN 15 mg/dl (7-24); CHLORIDE 115 mmol/L (98-107); CREATININE 1.06 mg/dL (0.55-1.02); PHOSPHOROUS 2.4 mg/dL (2.5-4.9); POTASSIUM 3.3 mmol/L (3.5-5.1); SODIUM 146 mmol/L (136-145)
[2017-07-09 08:00] VITALS: BP 139/67
[2017-07-09 12:00] VITALS: BP 149/67
[2017-07-09 16:00] VITALS: BP 158/76
[2017-07-09 20:00] VITALS: BP 141/74
[2017-07-10] VITALS: BP 137/72
[2017-07-10 07:29] LABS: BASO % 0.5 % (0.0-1.0); EOS # 0.2 10*3/uL (0.0-0.4); EOS % 4.1 % (1.0-4.0); HEMATOCRIT 33.9 % (37.0-47.0); LYMPH % 25.3 % (27.0-41.0); MEAN CELL VOLUME 92.9 fl (81.0-99.0); MEAN CORPUSCULAR HGB 30.1 pg (27.0-31.0); MEAN CORPUSCULAR HGB CONC 32.4 g/dl (33.0-37.0); MONO # 0.3 10*3/uL (0.1-1.0); MONO % 8.4 % (3.0-9.0); NEUT # 2.4 10*3/uL (2.3-7.9); NEUT % 61.4 % (47.0-73.0); PLATELET COUNT AUTOMATED 56 10*3/uL (130-400); RED BLOOD COUNT 3.65 10*6/uL (4.10-5.10); RED CELL DISTRI WIDTH 15.2 % (0-14.5); WHITE BLOOD COUNT 3.9 10*3/uL (4.8-10.8)
[2017-07-10 07:56] LABS: BUN 10 mg/dl (7-24); CHLORIDE 110 mmol/L (98-107); POTASSIUM 3.4 mmol/L (3.5-5.1); SODIUM 142 mmol/L (136-145)
[2017-07-10 07:58] LABS: CREATININE 0.96 mg/dL (0.55-1.02)
[2017-07-10 08:00] VITALS: BP 144/64
[2017-07-10 12:00] VITALS: BP 130/62
[2017-07-10 16:00] VITALS: BP 155/69
[2017-07-10 20:00] VITALS: BP 158/60
[2017-07-11 00:16] VITALS: BP 139/61
[2017-07-11 08:00] VITALS: BP 145/66
[2017-07-11 10:07] LABS: EOS # 0.2 10*3/uL (0.0-0.4); EOS % 4.6 % (1.0-4.0); HEMATOCRIT 34.6 % (37.0-47.0); HEMOGLOBIN 11.4 g/dl (12.0-16.0); LYMPH % 28.1 % (27.0-41.0); MEAN CELL VOLUME 92.8 fl (81.0-99.0); MEAN CORPUSCULAR HGB 30.6 pg (27.0-31.0); MEAN CORPUSCULAR HGB CONC 32.9 g/dl (33.0-37.0); MEAN PLATELET VOLUME 10.1 fl (9.6-12.3); MONO # 0.3 10*3/uL (0.1-1.0); MONO % 7.7 % (3.0-9.0); NEUT # 2.1 10*3/uL (2.3-7.9); NEUT % 58.7 % (47.0-73.0); PLATELET COUNT AUTOMATED 58 10*3/uL (130-400); RED BLOOD COUNT 3.73 10*6/uL (4.10-5.10); RED CELL DISTRI WIDTH 14.9 % (0-14.5); WHITE BLOOD COUNT 3.5 10*3/uL (4.8-10.8)
[2017-07-11 10:19] LABS: ALBUMIN 2.6 gm/dl (3.1-4.5); ALKALINE PHOSPHATASE 101 U/L (45-117); BUN 8 mg/dl (7-24); CHLORIDE 106 mmol/L (98-107); CREATININE 0.95 mg/dL (0.55-1.02); POTASSIUM 3.7 mmol/L (3.5-5.1); SGOT/AST 66 IU/L (3-35); SGPT/ALT 36 U/L (12-78); SODIUM 141 mmol/L (136-145); TOTAL PROTEIN 6.7 gm/dL (6.4-8.2)
[2017-07-11 12:00] VITALS: BP 150/74
[2017-07-11] MEDS ORDERED: Synthroid,Lev100 MCG PO (12:48)
[2017-07-11] MEDS ORDERED: INVANZ1 GM IV (12:55)
== END 2017-07-11 16:30 | disposition other institution (70) | DRG 871 ==
LOC: ED 15:30 → 4E 17:24 → EDHOLD 17:24 → 4E 17:55
PROVIDERS: Emergency Medicine; Family Medicine; Internal Medicine; Student in an Organized Health Care Education/Training Program
DX: A41.9 Sepsis, unspecified organism (principal); G93.41 Metabolic encephalopathy; N17.0 Acute kidney failure with tubular necrosis; D69.3 Immune thrombocytopenic purpura; J18.9 Pneumonia, unspecified organism; R16.1 Splenomegaly, not elsewhere classified; F03.90 Unspecified dementia, unspecified severity, without behavioral disturbance, psychotic disturbance, mood disturbance, and anxiety; N12 Tubulo-interstitial nephritis, not specified as acute or chronic; E87.6 Hypokalemia; E86.0 Dehydration; R73.9 Hyperglycemia, unspecified; R74.0 Nonspecific elevation of levels of transaminase and lactic acid dehydrogenase [LDH]; I10 Essential (primary) hypertension; E78.5 Hyperlipidemia, unspecified; R65.20 Severe sepsis without septic shock; E05.90 Thyrotoxicosis, unspecified without thyrotoxic crisis or storm; E03.9 Hypothyroidism, unspecified; K21.9 Gastro-esophageal reflux disease without esophagitis; E55.9 Vitamin D deficiency, unspecified; F32.9 Major depressive disorder, single episode, unspecified; Z88.5 Allergy status to narcotic agent; Z79.82 Long term (current) use of aspirin; Z79.899 Other long term (current) drug therapy; Z86.73 Personal history of transient ischemic attack (TIA), and cerebral infarction without residual deficits; Z90.49 Acquired absence of other specified parts of digestive tract; Z98.42 Cataract extraction status, left eye; Z98.41 Cataract extraction status, right eye; Z90.710 Acquired absence of both cervix and uterus; Z81.1 Family history of alcohol abuse and dependence; Z82.49 Family history of ischemic heart disease and other diseases of the circulatory system; Z81.8 Family history of other mental and behavioral disorders; Z84.89 Family history of other specified conditions

== ENCOUNTER → 2017-09-15 | Outpatient (CLI) | payer OTHER ==
[~2017-09-15] MED LIST changes: +BIOFREEZE118 ML T; +COREG3.125 MG PO; +INVANZ1 GM IV; +MACROBID100 M1 PO; +MILK OF MA400 MG/51 PO; +MILK OF MA400 MG/52 PO; +NYSTATIN OINTME30 GM T; +ROBITUSSIN DM 101 OZ PO
== END | disposition home or self-care (01) ==
LOC: CT 09-08 10:00
DX: K80.20 Calculus of gallbladder without cholecystitis without obstruction (principal); R30.0 Dysuria; K59.00 Constipation, unspecified; K74.69 Other cirrhosis of liver

== ENCOUNTER → 2018-05-26 | Outpatient (CLI) | payer OTHER | END | disposition home or self-care (01) | LOC: MAMMO 05-20 08:00 | DX: Z12.31 Encounter for screening mammogram for malignant neoplasm of breast (principal); N63.22 Unspecified lump in the left breast, upper inner quadrant ==

== ENCOUNTER 2018-08-20 08:59 | Emergency (ER) | payer OTHER ==
[~2018-08-20] VITALS: Wt 68.0 kg
--- NOTE | ~2018-08-20 | EKG ---
[place], [place] ELECTROCARDIOGRAM REPORT NAME: CYNTHIA ORTEZ UNIT #: [id number] ROOM: DOCTOR: EPIPHANY DRAFT REPORT BIRTHDATE: [birth year] [facility] Test Date: 2018-08-20 Test Time: 09:31:13 Pat Name: CYNTHIA ORTEZ Department: Room: Gender: F Rhia: Carolyne Pereira : 1945 Requested By: JUAN PRESTON Order Number: [id number] Reading MD: Lisbeth Soto MD Measurements Intervals [place] Rate: 53 P: 65 WI: 203 QRS: 21 QRSD: 105 T: 29 QT: 529 QTc: 497 Interpretive Statements Sinus rhythm Low voltage, precordial leads Borderline T abnormalities, anterior leads Borderline prolonged QT interval Baseline wander in lead(s) V4 No previous ECG available for comparison Electronically Signed On 08-20-2018 15:32:15 PDT by Lisbeth Soto MD CM:EKGRPT:ELECTROCARDIOGRAM REPORT 1532 UJAN MCKOY DRAFT REPORT JUAN PRESTON DO
[2018-08-20 09:40] LABS: BASO % 0.7 % (0.0-1.0); EOS # 0.2 10*3/uL (0.0-0.4); HEMATOCRIT 39.6 % (37.0-47.0); HEMOGLOBIN 12.9 g/dl (12.0-16.0); LYMPH # 0.9 10*3/uL (1.3-4.4); LYMPH % 28.9 % (27.0-41.0); MEAN CELL VOLUME 97.8 fl (81.0-99.0); MEAN CORPUSCULAR HGB 31.9 pg (27.0-31.0); MEAN CORPUSCULAR HGB CONC 32.6 g/dl (33.0-37.0); MEAN PLATELET VOLUME 10.3 fl (9.6-12.3); MONO # 0.1 10*3/uL (0.1-1.0); MONO % 4.4 % (3.0-9.0); NEUT # 1.8 10*3/uL (2.3-7.9); PLATELET COUNT AUTOMATED 58 10*3/uL (130-400); RED BLOOD COUNT 4.05 10*6/uL (4.10-5.10); RED CELL DISTRI WIDTH 16.6 % (0-14.5)
[2018-08-20 09:50] LABS: ACT PARTIAL THROMBO TIME 32.2 SECONDS (20.0-32.1); INTERNATIONAL NORM RATIO 1.1 (2.0-3.5)
[2018-08-20 09:59] LABS: ALKALINE PHOSPHATASE 122 U/L (45-117); BUN 12 mg/dl (7-24); CHLORIDE 110 mmol/L (98-107); CREATININE 1.09 mg/dL (0.55-1.02); LIPASE 320 U/L (73-393); POTASSIUM 3.4 mmol/L (3.5-5.1); SGOT/AST 125 IU/L (3-35); SGPT/ALT 49 U/L (12-78); SODIUM 143 mmol/L (136-145); TOTAL PROTEIN 7.5 gm/dL (6.4-8.2); TROPONIN I < 0.015 ng/ml (<0.045)
[2018-08-20 11:14] LABS: BILIRUBIN NEGATIVE (NEGATIVE); BLOOD NEGATIVE (NEGATIVE); CLARITY SL CLOUDY (CLEAR); COLOR YELLOW (YELLOW); GLUCOSE NEGATIVE (NEGATIVE); KETONE NEGATIVE (NEGATIVE); LEUKO ESTERASE NEGATIVE (NEGATIVE); NITRITE NEGATIVE (NEGATIVE); PH 6.5 (5.0-9.0)
[2018-08-20 11:26] LABS: BACTERIA 3+
[2018-09-28] MEDS ORDERED: KEFLEX500 M1 PO (20:24)
== END 2018-08-20 12:38 | disposition home or self-care (01) ==
LOC: ED 08:59
PROVIDERS: Emergency Medicine
DX: S01.81XA Laceration without foreign body of other part of head, initial encounter (principal); S60.222A Contusion of left hand, initial encounter; K21.9 Gastro-esophageal reflux disease without esophagitis; J45.909 Unspecified asthma, uncomplicated; E78.5 Hyperlipidemia, unspecified; I10 Essential (primary) hypertension; E03.9 Hypothyroidism, unspecified; D69.6 Thrombocytopenia, unspecified; Z88.5 Allergy status to narcotic agent; Z79.899 Other long term (current) drug therapy; Z79.82 Long term (current) use of aspirin; Z86.73 Personal history of transient ischemic attack (TIA), and cerebral infarction without residual deficits; Z90.710 Acquired absence of both cervix and uterus; Z90.49 Acquired absence of other specified parts of digestive tract; W07.XXXA Fall from chair, initial encounter; Y93.89 Activity, other specified; Y92.128 Other place in nursing home as the place of occurrence of the external cause; Y99.8 Other external cause status

== ENCOUNTER 2018-10-29 23:44 | Emergency (ER) | payer OTHER ==
[~2018-10-29] VITALS: Ht 167.6 cm; Wt 63.5 kg
[~2018-10-29 23:44] MED LIST changes: +KEFLEX500 M1 PO
[2018-10-30 00:37] LABS: BASO % 0.4 % (0.0-1.0); EOS # 0.2 10*3/uL (0.0-0.4); EOS % 3.1 % (1.0-4.0); HEMATOCRIT 35.5 % (37.0-47.0); HEMOGLOBIN 11.4 g/dl (12.0-16.0); LYMPH # 0.9 10*3/uL (1.3-4.4); LYMPH % 16.4 % (27.0-41.0); MEAN CELL VOLUME 100.9 fl (81.0-99.0); MEAN CORPUSCULAR HGB 32.4 pg (27.0-31.0); MEAN CORPUSCULAR HGB CONC 32.1 g/dl (33.0-37.0); MEAN PLATELET VOLUME 10.2 fl (9.6-12.3); MONO # 0.3 10*3/uL (0.1-1.0); MONO % 5.6 % (3.0-9.0); NEUT # 3.9 10*3/uL (2.3-7.9); NEUT % 74.1 % (47.0-73.0); PLATELET COUNT AUTOMATED 51 10*3/uL (130-400); RED BLOOD COUNT 3.52 10*6/uL (4.10-5.10); RED CELL DISTRI WIDTH 17.6 % (0-14.5); WHITE BLOOD COUNT 5.2 10*3/uL (4.8-10.8)
[2018-10-30 00:43] LABS: CREATININE 1.23 mg/dL (0.55-1.02); POTASSIUM 3.8 mmol/L (3.5-5.1)
[2018-10-31] MEDS ORDERED: ARTIFICIAL TEA1 EACH OP (02:32)
[2018-10-31] MEDS ORDERED: COREG12.5 M1 PO (02:34)
[2018-10-31] MEDS ORDERED: MIRALAX17 GM PO (02:34)
[2018-10-31] MEDS ORDERED: NORVASC5 MG PO (02:35)
[2018-10-31] MEDS ORDERED: NYSTATIN1 EAC3 MC (02:36)
[2018-10-31] MEDS ORDERED: SYNTHROID,LEV175 MCG PO (02:37)
[2018-10-31] MEDS ORDERED: POTASSIUM CHLO20 ME3 PO (02:37)
[2018-10-31] MEDS ORDERED: VITAMIN D22000 UNIT PO (02:38)
[2018-10-31] MEDS ORDERED: WELLBUTRIN XL150 MG PO (02:38)
== END 2018-10-30 02:38 | disposition home or self-care (01) ==
LOC: ED 23:44
PROVIDERS: Nurse Practitioner Family
DX: S00.81XA Abrasion of other part of head, initial encounter (principal); K21.9 Gastro-esophageal reflux disease without esophagitis; E78.5 Hyperlipidemia, unspecified; E03.9 Hypothyroidism, unspecified; Z90.49 Acquired absence of other specified parts of digestive tract; Z90.710 Acquired absence of both cervix and uterus; Z98.890 Other specified postprocedural states; Z86.73 Personal history of transient ischemic attack (TIA), and cerebral infarction without residual deficits; Z79.899 Other long term (current) drug therapy; Z79.82 Long term (current) use of aspirin; Z88.5 Allergy status to narcotic agent; W06.XXXA Fall from bed, initial encounter; Y93.89 Activity, other specified; Y92.092 Bedroom in other non-institutional residence as the place of occurrence of the external cause; Y99.8 Other external cause status

== ENCOUNTER 2018-10-30 22:42 | Inpatient (IN) | payer OTHER ==
[~2018-10-30] VITALS: Ht 162.6 cm; Wt 66.0 kg
[2018-10-30 22:46] VITALS: BP 146/60
[2018-10-30 23:08] LABS: BILIRUBIN NEGATIVE (NEGATIVE); BLOOD NEGATIVE (NEGATIVE); CLARITY CLEAR (CLEAR); COLOR YELLOW (YELLOW); GLUCOSE NEGATIVE (NEGATIVE); KETONE NEGATIVE (NEGATIVE); LEUKO ESTERASE NEGATIVE (NEGATIVE); NITRITE NEGATIVE (NEGATIVE); PH 6.5 (5.0-9.0); SPECIFIC GRAVITY 1.025 (1.005-1.030)
[2018-10-30 23:15] LABS: BASO % 0.5 % (0.0-1.0); EOS # 0.1 10*3/uL (0.0-0.4); EOS % 2.3 % (1.0-4.0); HEMATOCRIT 35.3 % (37.0-47.0); HEMOGLOBIN 11.2 g/dl (12.0-16.0); LYMPH # 0.7 10*3/uL (1.3-4.4); MEAN CELL VOLUME 101.1 fl (81.0-99.0); MEAN CORPUSCULAR HGB 32.1 pg (27.0-31.0); MEAN CORPUSCULAR HGB CONC 31.7 g/dl (33.0-37.0); MEAN PLATELET VOLUME 10.9 fl (9.6-12.3); MONO # 0.2 10*3/uL (0.1-1.0); MONO % 5.3 % (3.0-9.0); NEUT % 73.6 % (47.0-73.0); PLATELET COUNT AUTOMATED 51 10*3/uL (130-400); RED BLOOD COUNT 3.49 10*6/uL (4.10-5.10); RED CELL DISTRI WIDTH 17.9 % (0-14.5)
[2018-10-30 23:18] LABS: BACTERIA 2+; MUCOUS 1+; RBC 0-2 rbc/hpf (0-2)
[2018-10-30 23:28] LABS: ALBUMIN 2.6 gm/dl (3.1-4.5); CREATININE 1.47 mg/dL (0.55-1.02); POTASSIUM 3.7 mmol/L (3.5-5.1)
[2018-10-31] VITALS (7 sets, daily range): BP systolic 123–158; BP diastolic 51–83
--- NOTE | 2018-10-31 02:30 | NUR ---
A 73, admitted to 5E, under the services of KENNY Timmons DO with a diagnosis of RASH. ALTERED MENTAL STATUS. UTI. Chief complaint is RASH. Patient arrived via bed from ER. Monitor applied. Initial assessment completed. Vital signs taken and recorded. KENNY TIMMONS DO notified of admission to the unit. Orders received. See assessment for past medical history, medications and allergies. Patient and/or family oriented to unit. [address] visitation policy reviewed. Clothing/patient valuable form completed. WOUNDS TO BILATERAL ABDOMINAL FOLDS AND GROIN. SEE WOUND DOCUMENTATION. SCOTTY BYRNE
[2018-10-31] MEDS ORDERED: ARTIFICIAL TEA1 EACH OP (02:32)
[2018-10-31] MEDS ORDERED: MIRALAX17 GM PO (02:34)
[2018-10-31] MEDS ORDERED: COREG12.5 M1 PO (02:34)
[2018-10-31] MEDS ORDERED: NORVASC5 MG PO (02:35)
[2018-10-31] MEDS ORDERED: NYSTATIN1 EAC3 MC (02:36)
[2018-10-31] MEDS ORDERED: POTASSIUM CHLO20 ME3 PO (02:37)
[2018-10-31] MEDS ORDERED: SYNTHROID,LEV175 MCG PO (02:37)
[2018-10-31] MEDS ORDERED: VITAMIN D22000 UNIT PO (02:38)
[2018-10-31] MEDS ORDERED: WELLBUTRIN XL150 MG PO (02:38)
--- NOTE | 2018-10-31 02:39 | NUR ---
MED REC UPDATED PER LIST PROVIDED BY [facility]. CIPRO ATB FINISHED YESTERDAY.NOT ADDED TO MED REC
--- NOTE | 2018-10-31 03:00 | NUR ---
MULTIPLE SCABS AND BRUISES WERE NOTED ON ASSESSMENT OF SKIN.
--- NOTE | 2018-10-31 03:47 | NUR ---
DR KILPATRICK AWARE THAT WOUND ORDERS ARE NEEDED.
--- NOTE | 2018-10-31 03:49 | NUR ---
NEW PT CONSULT CALLED TO [facility] [place].
--- NOTE | 2018-10-31 05:29 | NUR ---
PT RESTLESS AND ITCHING PROFUSELY. DR KILPATRICK AWARE. AWAITING NEW ORDERS.
--- NOTE | 2018-10-31 10:09 | NUR ---
PHYSICAL THERAPY PATIENT SEEN TODAY IN ROOM WITH DAUGHTER PRESENT FOR SCREEN DUE TO PT REFERRAL FOR EVAL. 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 THANK YOU FOR REFERRAL [facility] PT
--- NOTE | 2018-10-31 15:32 | NUR ---
24 HR chart check completed.
--- NOTE | 2018-10-31 20:00 | NUR ---
24 HOUR CHART CHECK COMPLETE.
[2018-11-01] VITALS: BP 158/72; BP 170/69
[2018-11-01 06:47] LABS: MEAN PLATELET VOLUME 10.2 fl (9.6-12.3); RED CELL DISTRI WIDTH 17.6 % (0-14.5)
[2018-11-01 06:52] LABS: HEMATOCRIT 35.3 % (37.0-47.0); MEAN CELL VOLUME 101.7 fl (81.0-99.0); MEAN CORPUSCULAR HGB 31.7 pg (27.0-31.0); MEAN CORPUSCULAR HGB CONC 31.2 g/dl (33.0-37.0); PLATELET COUNT AUTOMATED 49 10*3/uL (130-400); RED BLOOD COUNT 3.47 10*6/uL (4.10-5.10); WHITE BLOOD COUNT 2.8 10*3/uL (4.8-10.8)
[2018-11-01 07:01] LABS: BUN 13 mg/dl (7-24); CHLORIDE 114 mmol/L (98-107); CHOLESTEROL 92 mg/dL (<200); CREATININE 1.04 mg/dL (0.55-1.02); FREE T4 1.28 ng/dl (0.76-1.46); HDL CHOLESTEROL 24 mg/dl (40-60); LDL CHOLESTEROL 47 mg/dL (9-159); PHOSPHOROUS 2.8 mg/dL (2.5-4.9); POTASSIUM 3.6 mmol/L (3.5-5.1); SODIUM 143 mmol/L (136-145); TRIGLYCERIDES 104 mg/dl (<150); VLDL CHOLESTEROL 21 mg/dL (6-40)
[2018-11-01 07:13] LABS: PLATELET SUFFICIENCY LOW (NORMAL); SCHISTOCYTES FEW; TOTAL CELLS COUNTED 100 #CELLS
--- NOTE | 2018-11-01 07:30 | NUR ---
24 HR chart check completed.
[2018-11-01 08:00] VITALS: BP 154/62
[2018-11-01 08:17] LABS: VITAMIN D, 25-HYDROXY 39.8 ng/mL (30-100)
--- NOTE | 2018-11-01 09:25 | NUR ---
CYNTHIA ORTEZ [id number] Please refer to the physician's history and physical for past medical history, comorbid conditions, and allergies. Diagnosis: YEAST DERMATITIS, CHANGE IN MENTAL STATUS Jony Score: 11,HIGH RISK WOUND DESCRIPTIONS: Wound Number: 1,2,5,6 Location of the wound: ABDONMIN Type of wound: Thickness: Partial Size: 27cm X 74cM X 0.1cm Tunneling: NONE Undermining: NONE Sinus Tract: NONE Presence of Exudate: Serous Amount: Light Color: Red, Yellow Odor: None Periwound Skin Appearance: Erythema Wound edges: APPROXIMATED Pain (associated with wound): TENDER TO TOUCH How does patient state this happened? PATIENT UNSURE HOW THIS HAPPENED. PATIENT'S DAUGHTER STATES THAT THE PATIENT WAS "SCRATCHING HERSELF" IN THIS AREA. Surface the patient is resting on: Isoflex SKIN PREVENTION RECOMMENDATION: 1. Pressure redistribution support surface as appropriate 2. Elevate heels 3. Remove boots/TEDS every shift and reapply 4. Head of bed 30 degrees as tolerated 5. Assess nutrition and hydration 6. Manage moisture 7. Avoid the use of containment devices while in bed 8. Use absorptive products on surfaces limit layers of linens on bed 9. Turn and reposition every 1-2 hours in bed and every 1 hour in chair as tolerated 10. Weight shifts every 15 minutes while up in chair 11. Offloading with pillows or device to keep heels elevated off bed 12. Monitor skin at least every shift 13. Inspect under medical devices twice a day WOUND TREATMENT RECOMMENDATIONS: CONTINUE CURRENT ORDERS OF NYSTATIN POWDER.
--- NOTE | 2018-11-01 09:29 | NUR ---
PHYSICAL THERAPY Nursing screen received and chart reviewed. Physical therapy screen complete 10/31/18. Thank you. Meri Martinez,PT,DPT.
--- NOTE | 2018-11-01 11:48 | NUR ---
Faxed palliative care order to [facility] and notified Nadia palliative care nurse
--- NOTE | 2018-11-01 11:54 | NUR ---
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 SIZE TESTER faxed updates to [facility]. -NICOLE Blackburn
[2018-11-01 12:00] VITALS: BP 150/70
--- NOTE | 2018-11-01 12:50 | NUR ---
PT IS [facility] CARE AT [facility] AND PER DAUGHTER AT BEDSIDE SHE WILL RETURN THERE ON DISCHARGE. WILL CONTINUE TO FOLLOW.
--- NOTE | 2018-11-01 14:15 | NUR ---
SPEECH PATHOLOGY Nursing screen completed. This dept. will be available for consult as needed due to history of dysphagia. JORDEN CURTIS MSCCC-MECHANICAL CAD DRAFTER
--- NOTE | 2018-11-01 15:30 | NUR ---
REPORT RECEIVED. PT IS ALERT AND CONFUSED AT TIMES. FAMILY AT BEDSIDE. PT VOICES NO CONCERNS AT THIS TIME. CALL LIGHT IN REACH.
--- NOTE | 2018-11-01 15:41 | NUR ---
Occupational therapy orders received and chart reviewed. Patient admitted for rash, AMS, and UTI. Per discussion with patient and patient's daughter, they do not want OT treatment at this time. Patient's "main problem" per daughter is her swallowing. OT notified patient of discharge from OT orders and was agreeable. Thank you. Marylu Broderick OTR/L
[2018-11-01 16:00] VITALS: BP 161/53
--- NOTE | 2018-11-01 18:14 | NUR ---
SPOKE TO DR. BEDOYA ABOUT PT CODE STATUS AND SS CONSULT PER REQUEST OF YADI ORTEZ.
[2018-11-01 20:00] VITALS: BP 155/60
--- NOTE | 2018-11-01 20:00 | NUR ---
24 HOUR CHART CHECK COMPLETE.
--- NOTE | 2018-11-01 20:50 | NUR ---
DAUGHTER REQUESTING ANXIETY MEDICATIONS. CALLED DR. PRITCHARD. ONE TIME DOSE OF ATIVAN ORDERED.
[2018-11-02] VITALS: BP 117/49
--- NOTE | 2018-11-02 04:38 | NUR ---
Upon discharge recommend patient to follow up for wound care in outpatient setting continue current wound care orders at discharging facility.
--- NOTE | 2018-11-02 06:47 | NUR ---
PT DISPLAYING SOME CONFUSION AT THIS TIME. STATES SHE "NEEDS TO GET DRESSED BECAUSE SHE IS GOING HOME". I ASSISTED THE PT IN CALLING HER DAUGHTER FROM THE HOSPITAL PHONE. SHE SEEMS TO HAVE BECOME LESS AGITATED AFTER TALKING WITH HER. WILL CONTINUE TO MONITOR.
--- NOTE | 2018-11-02 07:45 | NUR ---
ASSISTED UP TO CHAIR AND PLACED IN DOORWAY W/ BA ON FOR SAFETY. DENIES ANY COMPLAINTS. INVOLUNTARY MUSCLES MOVEMENTS PROLIFIC.
[2018-11-02 08:00] VITALS: BP 130/44
--- NOTE | 2018-11-02 08:09 | NUR ---
ELECTRONIC NEWS GATHERING EDITOR faxed referral to [facility]. -Carol Sanabria,ELECTRONIC NEWS GATHERING EDITOR
--- NOTE | 2018-11-02 09:00 | NUR ---
PT FED IN CHAIR. DAUGHTER PHONED IN AND UPDATED ON POC.
--- NOTE | 2018-11-02 10:19 | NUR ---
EXCHANGE SPECIALIST faxed updates to [facility]. EXCHANGE SPECIALIST spoke with [facility]. She stated she has a 3:30pm meeting scheduled with the patients family rather its at this facility or [facility]. Cate also stated that they will assess the patients need for a [employer] after they admit her into their program. -NICOLE Blackburn
--- NOTE | 2018-11-02 12:33 | NUR ---
SPOKE WITH PT DAUGHTER. SHE WANTS PT TO RETURN TO [facility] TODAY. THINKS BEING HERE IS AGITATING PT MORE. DR GRANT INFORMED OF DAUGHTER WISHES TO HAVE PT RETURN TO [facility]. PT WILL BE HOSPICE AT [facility] PER DAUGHTER.
--- NOTE | 2018-11-02 13:09 | NUR ---
NICOLE received voice message from patients daughter. She stated that she is wanting her mother, the patient to be discharged today. NICOLE explained no discharge orders are showing. She stated that she has an meeting set with [facility] at 3:30pm. Since no orders have come through as of now she is requesting it be after that time. This way she can the patient admitted to their program. NICOLE will notify the RN. -NICOLE Blackburn
[2018-11-02] MEDS ORDERED: ATIVAN1 MG SL (13:34)
--- NOTE | 2018-11-02 15:15 | NUR ---
DAUGHTER HERE TO SPEAK WITH [employer].
--- NOTE | 2018-11-02 15:27 | NUR ---
STUDENT LIAISON OFFICER faxed updates and discharge orders to [facility]. Patients family is having a meeting with Hospice at 3:30pm today at this facility. -NICOLE Blackburn
--- NOTE | 2018-11-02 15:30 | NUR ---
TRANSPORTATION SET UP FOR PT DISCHARGE TO [facility] [place] WILL PICK PT UP AT 4 PM.
--- NOTE | 2018-11-02 15:32 | NUR ---
DAUGHTER REFUSING ANY WOUND CARE D/C PHOTOS.
--- NOTE | 2018-11-02 16:24 | NUR ---
REPORT CALLED TO [facility], QUESTIONS ANSWERED.
--- NOTE | 2018-11-02 17:40 | NUR ---
LEAVING IN CARE OF AMBULANCE, DAUGHTER PRESENT.
== END 2018-11-02 17:40 | disposition hospice, home (50) | DRG 70 ==
LOC: ED 22:42 → EDHOLD 10-31 01:16 → 5E 10-31 01:16
PROVIDERS: Internal Medicine; Nurse Practitioner Family; ADMIT Family Medicine
DX: G93.41 Metabolic encephalopathy (principal); N17.0 Acute kidney failure with tubular necrosis; E43 Unspecified severe protein-calorie malnutrition; D61.818 Other pancytopenia; F03.91 Unspecified dementia, unspecified severity, with behavioral disturbance; F23 Brief psychotic disorder; G23.9 Degenerative disease of basal ganglia, unspecified; E86.0 Dehydration; B37.2 Candidiasis of skin and nail; Z88.5 Allergy status to narcotic agent; Z79.82 Long term (current) use of aspirin; F32.9 Major depressive disorder, single episode, unspecified; K21.9 Gastro-esophageal reflux disease without esophagitis; E78.5 Hyperlipidemia, unspecified; I10 Essential (primary) hypertension; Z66 Do not resuscitate; Z51.5 Encounter for palliative care; E03.9 Hypothyroidism, unspecified; Z86.73 Personal history of transient ischemic attack (TIA), and cerebral infarction without residual deficits; E87.8 Other disorders of electrolyte and fluid balance, not elsewhere classified; R73.9 Hyperglycemia, unspecified; R74.0 Nonspecific elevation of levels of transaminase and lactic acid dehydrogenase [LDH]; R13.10 Dysphagia, unspecified; E55.9 Vitamin D deficiency, unspecified; Z90.710 Acquired absence of both cervix and uterus; Z90.49 Acquired absence of other specified parts of digestive tract; Z98.41 Cataract extraction status, right eye; Z98.42 Cataract extraction status, left eye; Z82.49 Family history of ischemic heart disease and other diseases of the circulatory system; Z81.1 Family history of alcohol abuse and dependence; Z68.25 Body mass index [BMI] 25.0-25.9, adult

== ENCOUNTER 2018-11-03 08:21 | Emergency (ER) | payer OTHER ==
[~2018-11-03] VITALS: Ht 162.5 cm; Wt 65.8 kg
[~2018-11-03 08:21] MED LIST changes: +ARTIFICIAL TEA1 EACH OP; +ATIVAN1 MG SL; +COREG12.5 M1 PO; +NORVASC5 MG PO; +NYSTATIN1 EAC3 MC; +POTASSIUM CHLO20 ME3 PO; +SYNTHROID,LEV175 MCG PO; +VITAMIN D22000 UNIT PO; +WELLBUTRIN XL150 MG PO
[2018-11-03 08:59] LABS: BASO % 0.5 % (0.0-1.0); EOS # 0.1 10*3/uL (0.0-0.4); EOS % 3.5 % (1.0-4.0); HEMATOCRIT 33.5 % (37.0-47.0); HEMOGLOBIN 10.6 g/dl (12.0-16.0); LYMPH % 26.5 % (27.0-41.0); MEAN CELL VOLUME 101.2 fl (81.0-99.0); MEAN CORPUSCULAR HGB CONC 31.6 g/dl (33.0-37.0); MEAN PLATELET VOLUME 10.6 fl (9.6-12.3); MONO # 0.2 10*3/uL (0.1-1.0); MONO % 6.4 % (3.0-9.0); NEUT # 2.4 10*3/uL (2.3-7.9); NEUT % 62.8 % (47.0-73.0); PLATELET COUNT AUTOMATED 56 10*3/uL (130-400); RED BLOOD COUNT 3.31 10*6/uL (4.10-5.10); RED CELL DISTRI WIDTH 17.2 % (0-14.5); WHITE BLOOD COUNT 3.7 10*3/uL (4.8-10.8)
[2018-11-03 09:14] LABS: ALBUMIN 2.6 gm/dl (3.1-4.5); CREATININE 1.17 mg/dL (0.55-1.02); POTASSIUM 3.7 mmol/L (3.5-5.1); TOTAL PROTEIN 6.8 gm/dL (6.4-8.2)
== END 2018-11-03 13:21 | disposition home or self-care (01) ==
LOC: ED 08:21
PROVIDERS: Emergency Medicine
DX: R41.82 Altered mental status, unspecified (principal); F41.9 Anxiety disorder, unspecified; F32.9 Major depressive disorder, single episode, unspecified; F03.90 Unspecified dementia, unspecified severity, without behavioral disturbance, psychotic disturbance, mood disturbance, and anxiety; K21.9 Gastro-esophageal reflux disease without esophagitis; I10 Essential (primary) hypertension; E78.5 Hyperlipidemia, unspecified; E03.9 Hypothyroidism, unspecified; Z86.718 Personal history of other venous thrombosis and embolism; Z79.899 Other long term (current) drug therapy; Z88.6 Allergy status to analgesic agent; Z87.440 Personal history of urinary (tract) infections